=== PATIENT | female | born 1945 | race Caucasian/White ===

== ENCOUNTER 2017-09-13 14:33 | Outpatient (CLI) | payer MEDICARE, BC ==
[~2017-09-13 14:33] MED LIST: Gadobenate Dimeglumine 529 MG/1 ML (20ML VIAL) ONE
--- NOTE | 2017-09-13 19:22 | MRI ---
MRI BRAIN WITH AND WITHOUT CONTRAST: Technique: Multiplanar, multisequential imaging of brain obtained. Post contrast images were obtained with administration of 11 cc of MultiHance IV. History: Memory loss. FINDINGS: Ventricles have normal size and position. Mild chronic ischemic white matter changes are seen in both cerebral hemispheres. No evidence of restricted diffusion identified. No mass, edema, or infarct gretchen ntified. No abnormal enhancement identified. The intracranial internal carotid arteries and proximal cerebral arteries show flow voids. Basilar arteries show flow void. IMPRESSION: Mild chronic ischemic white matter changes. MRI brain otherwise unremarkable. POS: [facility]
== END 2017-09-13 14:34 | disposition home or self-care (01) ==
LOC: EEG 14:33
PROVIDERS: ATTEND Student in an Organized Health Care Education/Training Program
DX: R41.3 Other amnesia (principal); I67.82 Cerebral ischemia
CPT/HCPCS: 70553; 95816; A9579